=== PATIENT | female | born 1970 | race Caucasian/White ===

== ENCOUNTER 2024-01-28 16:57 | Emergency (ER) | payer BC ==
[2024-01-28 17:13] VITALS: TEMP 97.3
[2024-01-28 18:11] LABS: Basophils # (A) 0.1 k/uL (0-0.2); Basophils % (A) 1 %; Eosinophils # (A) 0.1 k/uL (0-0.7); Eosinophils % (A) 2 %; HCT 41.6 % (34.0-46.0); HGB 13.5 gm/dL (11.4-16.0); Lymphocytes # (A) 1.7 k/uL (1.0-4.8); Lymphocytes % (A) 23 %; MCH 30.9 pg (25.0-35.0); MCHC 32.4 g/dL (31.0-37.0); MCV 95.2 fL (80.0-100.0); Mean Platelet Volume 7.3; Monocytes # (A) 0.5 k/uL (0-1.0); Monocytes % (A) 7 %; Neutrophils # (A) 4.8 k/uL (1.3-7.7); Neutrophils % (A) 65 %; Platelet Count 208 k/uL (150-450); RBC 4.37 m/uL (3.80-5.40); RDW 12.4 % (11.5-15.5); WBC 7.3 k/uL (3.8-10.6)
[2024-01-28 18:14] LABS: Appearance,Urine Clear (Clear); Bilirubin,Urine Negative (Negative); Blood,Urine Large (Negative); Color,Urine Light Red; Glucose,Urine (UA) Negative (Negative); Ketones,Urine Negative (Negative); Leukocyte Esterase,Urine Negative (Negative); Mucus,Urine Occasional /hpf; Nitrite,Urine Negative (Negative); Protein,Urine Trace (Negative); RBC,Urine >182 /hpf (0-5); Specific Gravity,Urine 1.017 (1.001-1.035); Squamous Epithelial Cell,Urine 2 /hpf (0-4); Urobilinogen,Urine <2.0 mg/dL (<2.0); WBC,Urine 8 /hpf (0-5)
--- NOTE | 2024-01-28 18:16 | ED ---
Female Urogenital HPI - General Chief complaint: Urogenital Stated complaint: Evaluation, blood in urine Time Seen by Provider: 01/28/24 17:22 Source: patient, family, RN notes reviewed Mode of arrival: ambulatory Limitations: no limitations - History of Present Illness Initial comments: 53-year-old female with a history of renal cyst but no history of kidney stones who presents with complaints of 2 days of a slight burning sensation over the right flank and CVA region but also hematuria. No fevers chills nausea vomiting sweats she occasionally is nauseated but not now. She has had a in the past but no other surgeries. She was seen at urgent care and sent here for further evaluation. - Related Data Allergies Allergy/AdvReac Type Severity Reaction Status Date / Time No Known Allergies Allergy Verified 01/28/24 17:14 Review of Systems ROS Statement: Those systems with pertinent positive or pertinent negative responses have been documented in the HPI. ROS Other: All systems not noted in ROS Statement are negative. Past Medical History Additional Past Medical History / Comment(s): renal cysts. Past Surgical History: Section Past Psychological History: No Psychological Hx Reported Smoking Status: Never smoker Past Alcohol Use History: Rare Past Drug Use History: None Reported General Exam - General Exam Comments Initial Comments: This is a well-developed well-nourished awake alert oriented x 4 female Limitations: no limitations General appearance: alert, in no apparent distress Head exam: Present: atraumatic, normocephalic, normal inspection Eye exam: Present: normal appearance, PERRL, EOMI. Absent: scleral icterus, conjunctival injection, periorbital swelling ENT exam: Present: normal exam, mucous membranes moist Neck exam: Present: normal inspection, full ROM. Absent: tenderness, meningismus, lymphadenopathy Respiratory exam: Present: normal lung sounds bilaterally. Absent: respiratory distress, wheezes, rales, rhonchi, stridor Cardiovascular Exam: Present: regular rate, normal rhythm, normal heart sounds. Absent: systolic murmur, diastolic murmur, rubs, gallop, clicks GI/Abdominal exam: Present: soft, normal bowel sounds. Absent: distended, tenderness, guarding, rebound, rigid Extremities exam: Present: normal inspection, full ROM, normal capillary refill. Absent: tenderness, pedal edema, joint swelling, calf tenderness Back exam: Present: normal inspection, full ROM. Absent: tenderness, CVA tenderness (R), CVA tenderness (L) Neurological exam: Present: alert, oriented X3, CN II-XII intact Psychiatric exam: Present: normal affect, normal mood Skin exam: Present: warm, dry, intact, normal color. Absent: rash Course Vital Signs 01/28/24 01/28/24 17:06 18:13 Temperature 97.3 F L Pulse Rate 86 85 Respiratory 18 17 Rate Blood Pressure 133/89 138/94 O2 Sat by Pulse 98 98 Oximetry Medical Decision Making - Medical Decision Making Has had no further pain or discomfort. We did discuss the findings on the lab work and imaging patient does have a large amount of red blood cells in the urine consistent with a kidney stone. CT of the abdomen pelvis reveals a 2 mm nonobstructive stone in the right kidney the renal cyst as the patient is aware and multiple pelvic calcifications. The clinical findings are consistent with the patient having passed or in the process of passing a kidney stone. There is no evidence of any obstructive process on the imaging. We did discuss adequate hydration pain control if needed. There is a family history of kidney stones. Was pt. sent in by a medical professional or institution (, PA, RAIL CAR REPAIRMAN, urgent care, hospital, or care home...) When possible be specific @ -No Did you speak to anyone other than the patient for history (EMS, parent, family, police, friend...)? What history was obtained from this source @ -Family Did you review nursing and triage notes (agree or disagree)? Why? @ -I reviewed and agree with nursing and triage notes Were old charts reviewed (outside hosp., previous admission, EMS record, old EKG, old radiological studies, urgent care reports/EKG's, care home records)? Report findings @ -No old charts were reviewed Differential Diagnosis (chest pain, altered mental status, abdominal pain women, abdominal pain men, vaginal bleeding, weakness, fever, dyspnea, syncope, headache, dizziness, GI bleed, back pain, seizure, CVA, palpatations, mental health renal colic, kidney stone musculoskeletal)? @ - EKG interpreted by me (3pts min.). @ -Indicated X-rays interpreted by me (1pt min.). @ -None done CT interpreted by me (1pt min.). @ -Interpreted by me evidence of a nonobstructive kidney stone right kidney renal cyst noted no evidence of hydronephrosis multiple pelvic calcifications. U/S interpreted by me (1pt. min.). @ -None done What testing was considered but not performed or refused? (CT, X-rays, U/S, labs)? Why? @ -None What meds were considered but not given or refused? Why? @ -None Did you discuss the management of the patient with other professionals (p rickfessmannys i.e. , PA, RAIL CAR REPAIRMAN, lab, RT, psych nurse, social science teacher, practice nurse, teacher, correctional officer, rifle case repairer)? Give summary @ -No Was smoking cessation discussed for >3mins.? @ -No Was critical care preformed (if so, how long)? @ -No Were there social determinants of health that impacted care today? How? (Homelessness, low income, unemployed, alcoholism, drug addiction, transportation, low edu. Level, literacy, decrease access to med. care, usp, rehab)? @ -No Was there de-escalation of care discussed even if they declined (Discuss DNR or withdrawal of care, Hospice)? DNR status @ -No What co-morbidities impacted this encounter? (DM, HTN, Smoking, COPD, CAD, Cancer, CVA, ARF, Chemo, Hep., AIDS, mental health diagnosis, sleep apnea, morbid obesity)? @ -Renal cysts Was patient admitted / discharged? Hospital course, mention meds given and route, prescriptions, significant lab abnormalities, going to OR and other pertinent info. @ -Hospital course was discharged with follow-up with her doctor instructed to increase oral fluids Undiagnosed new problem with uncertain prognosis? @ -No Drug Therapy requiring intensive monitoring for toxicity (Heparin, Nitro, Insulin, Cardizem)? @ -No Were any procedures done? @ -No Diagnosis/symptom? @ -Kidney stone, hematuria Acute, or Chronic, or Acute on Chronic? @ -Acute Uncomplicated (without systemic symptoms) or Complicated (systemic symptoms)? @ -Default Side effects of treatment? @ -No Exacerbation, Progression, or Severe Exacerbation? @ -No Poses a threat to life or bodily function? How? (Chest pain, [place], [place], pneumonia, PE, COPD, DKA, ARF, appy, cholecystitis, CVA, Diverticulitis, Homicidal, Suicidal, threat to staff... and all critical care pts) @ -No - Lab Data Result diagrams: 01/28/24 17:23 01/28/24 17:23 Lab Results 01/28/24 01/28/24 01/28/24 Range/Units 17:23 17:23 17:23 WBC 7.3 (3.8-10.6) k/uL RBC 4.37 (3.80-5.40) m/uL Hgb 13.5 (11.4-16.0) gm/dL Hct 41.6 (34.0-46.0) % MCV 95.2 (80.0-100.0) fL MCH 30.9 (25.0-35.0) pg MCHC 32.4 (31.0-37.0) g/dL RDW 12.4 (11.5-15.5) % Plt Count 208 (150-450) k/uL MPV 7.3 Neutrophils % 65 % Lymphocytes % 23 % Monocytes % 7 % Eosinophils % 2 % Basophils % 1 % Neutrophils # 4.8 (1.3-7.7) k/uL Lymphocytes # 1.7 (1.0-4.8) k/uL Monocytes # 0.5 (0-1.0) k/uL Eosinophils # 0.1 (0-0.7) k/uL Basophils # 0.1 (0-0.2) k/uL Sodium 139 (137-145) mmol/L Potassium 3.8 (3.5-5.1) mmol/L Chloride 109 H (98-107) mmol/L Carbon Dioxide 25 (22-30) mmol/L Anion Gap 5 mmol/L BUN 15 (7-17) mg/dL Creatinine 0.73 (0.52-1.04) mg/dL Est GFR (CKD-EPI)AfAm >90 (>60 ml/min/1.73 sqM) Est GFR (CKD-EPI)NonAf >90 (>60 ml/min/1.73 sqM) Glucose 99 (74-99) mg/dL Calcium 9.5 (8.4-10.2) mg/dL Total Bilirubin 0.8 (0.2-1.3) mg/dL AST 24 (14-36) U/L ALT 20 (4-34) U/L Alkaline Phosphatase 66 (38-126) U/L Creatine Kinase 101 (30-135) U/L Total Protein 6.1 L (6.3-8.2) g/dL Albumin 3.9 (3.5-5.0) g/dL Urine Color Light Red Urine Appearance Clear (Clear) Urine pH 6.0 (5.0-8.0) Ur Specific [place] 1.017 (1.001-1.035) Urine Protein Trace H (Negative) Urine Glucose (UA) Negative (Negative) Urine Ketones Negative (Negative) Urine Blood Large H (Negative) Urine Nitrite Negative (Negative) Urine Bilirubin Negative (Negative) Urine Urobilinogen <2.0 (<2.0) mg/dL Ur Leukocyte Esterase Negative (Negative) Urine RBC >182 H (0-5) /hpf Urine WBC 8 H (0-5) /hpf Ur Squamous Epith Cells 2 (0-4) /hpf Urine Mucus Occasional H (None) /hpf Disposition Clinical Impression: Kidney stone on right side, Hematuria Disposition: HOME SELF-CARE Condition: Good Instructions (If sedation given, give patient instructions): Kidney Stones (ED), Flank Pain (ED), How to Strain Your Urine (ED) Is patient prescribed a controlled substance at d/c from ED?: No Referrals: Harish Grove MD [Primary Care Provider] - 1-2 days Time of Disposition: 19:23 Decision Date: 01/28/24 Decision Time: 19:23
[2024-01-28 18:36] LABS: ALT 20 U/L (4-34); AST 24 U/L (14-36); African American GFR (CKD) >90 (>60 ml/min/1.73 sqM); Albumin 3.9 g/dL (3.5-5.0); Alkaline Phosphatase 66 U/L (38-126); Anion Gap 5 mmol/L; Blood Urea Nitrogen 15 mg/dL (7-17); Calcium 9.5 mg/dL (8.4-10.2); Carbon Dioxide 25 mmol/L (22-30); Chloride 109 mmol/L (98-107); Creatine Kinase 101 U/L (30-135); Glucose 99 mg/dL (74-99); Non-African American GFR(CKD) >90 (>60 ml/min/1.73 sqM); Potassium 3.8 mmol/L (3.5-5.1); Sodium 139 mmol/L (137-145); Total Bilirubin 0.8 mg/dL (0.2-1.3); Total Protein 6.1 g/dL (6.3-8.2)
--- NOTE | 2024-01-28 19:00 | CT ---
EXAMINATION TYPE: CT abdomen pelvis wo con DATE OF EXAM: 01/28/2024 COMPARISON: None HISTORY: 53-year-old female Flank pain, hematuria. CT DLP: 242.6 mGycm. Automated exposure control for dose reduction was used. TECHNIQUE: Contiguous axial scanning of the abdomen and pelvis without IV contrast. Coronal and sagit irina reconstructions performed. FINDINGS: Heart normal size with trace anterior pericardial fluid. There may be mild underlying emphysematous c hange. No pleural effusion. Lack of IV contrast and marked possibility of intra-abdominal fat limits assessment. Otherwise, noncontrast appearance of the liver, adrenal glands, spleen, and pancreas show no gross ab normality. Unable to adequately visualize the gallbladder. Punctate 2 mm nonobstructive right renal calculus. A couple renal cortical cyst measuring 3.8 and 1.7 cm and the left kidney. No hydronephrosis identifi ed on either side. No dilated small bowel, free fluid, or free air. Unable to adequately assess for underlying lymphaden opathy due to vomiting and lack of contrast. Suspect a normal appendix. Scattered [id number] stool. Bowel not well delineated due to extensi ve crowding. Bladder partially collapsed numerous pelvic calcifications, likely phleboliths. Unable to delineate t he uterus and ovaries. Extensive crowding. There is a 1.5 cm cyst of the right labia suggesting a Bartholin's cyst. Hypertrophic facet arthropathy lower lumbar spine. Grade 1, nearly grade 2 anterolisthesis L4-L5. IMPRESSION: 1. Very limited assessment due to extensive crowding of structures due to possibility of intra-abdom inal fat as well as lack of contrast. 2. There are numerous calcifications in the pelvis, the majority of which appear to represent phlebo liths. Further clinical correlation recommended for any renal colic to exclude the possibility of a d istal ureteral stone. However, there is no hydronephrosis identified on either side. 3. Punctate 2 mm nonobstructive right renal calculus. Couple benign left renal cortical cysts measur ing up to 3.8 cm. 4. Incidental 1.5 cm cyst of the right labia most likely a Bartholin's cyst. Consider [facility] [place] referra l if symptomatic. 5. Nearly grade 2 anterolisthesis at L4-L5 secondary to hypertrophic facet arthropathy.
[2024-01-28 19:47] VITALS: BP 132/88; PULSE 78; RESP 18
== END 2024-01-28 19:40 | disposition home or self-care (01) ==
LOC: EC 16:57
DX: N20.0 Calculus of kidney (principal); N28.1 Cyst of kidney, acquired
CPT/HCPCS: 36415; 74176; 80053; 81001; 82550; 85025; 99284